=== PATIENT | female | born 1945 | race Caucasian/White ===

== ENCOUNTER 2019-06-12 12:46 | Inpatient (IN) | payer MEDICARE, OTHER ==
[~2019-06-12] VITALS: Ht 154.9 cm; Wt 56.6 kg
--- NOTE | 2019-06-12 13:10 | NUR ---
PATIENT PRESENTS TO ED TODAY FOR CAT BITE TO RT HAND LAST SAT. PATIENT SENT TO ED FROM FOR CULLULITIS. ERYTHEMA/SWELLING NOTED TO RT HAND. AWAITING MD ORDERS, CALL LIGHT WITHIN REACH.
[2019-06-12] MEDS ORDERED: TIOT18CA INH (13:11)
[2019-06-12] MEDS ORDERED: FLUT12HF2 INH (13:12)
--- NOTE | 2019-06-12 13:16 | NUR ---
PATIENT 87% RA, SUPPLEMENTAL O2 APPLIED, NOW 95% 2L NC.
[2019-06-12] MEDS ORDERED: SODIUM CHLORIDE FLUSH 10ML SYR IVF ONE (13:30)
[2019-06-12 13:36] LABS: BASOPHILS # (AUTO) 0.03 x10^3/uL (0-0.1); BASOPHILS % (AUTO) 0 % (0-1); EOSINOPHILS # (AUTO) 0.11 x10^3/uL (0-0.4); EOSINOPHILS % (AUTO) 1 % (1-7); LYMPHOCYTES # (AUTO) 1.48 x10^3/uL (1-3.4); LYMPHOCYTES % (AUTO) 14 % (22-44); MD NO; MEAN CORPUSCULAR HEMOGLOBIN 30.5 pg (27.0-34.8); MEAN CORPUSCULAR HGB CONC 33.1 g/dL (32.4-35.8); MEAN CORPUSCULAR VOLUME 92.2 fL (80-100); MEAN PLATELET VOLUME 7.5 fL (7.4-10.4); MONOCYTES # (AUTO) 0.49 x10^3/uL (0.2-0.8); MONOCYTES % (AUTO) 5 % (2-9); NEUTROPHILS # (AUTO) 8.48 x10^3/uL (1.8-6.8); NEUTROPHILS % (AUTO) 80 % (42-75); PLATELET COUNT 271 x10^3/uL (130-400); RED BLOOD COUNT 5.27 x10^6/uL (3.82-5.3); RED CELL DISTRIBUTION WIDTH 15.3 % (9.6-15.2)
[2019-06-12 13:43] LABS: ANION GAP 7 mmol/L (5-15); CALCIUM 9.9 mg/dL (8.5-10.1); CHLORIDE 107 mmol/L (98-107); CREATININE 0.64 mg/dL (0.55-1.02)
--- NOTE | 2019-06-12 13:48 | NUR ---
VS UPDATED IN CHART, BLOOD CULTURES X 2 DRAWN PRIOR TO ABX ADMINISTRATION, ABX ADMINISTERED. PATIENT SITTING IN [place], PLAYING ON PHONE, NADN. AWAITING RESULTS.
[2019-06-12] MEDS ORDERED: AMPICILLIN/SULBACTAM 3 GM in SODIUM CHLORIDE 0.9% 100 ML IV ONE (14:00)
--- NOTE | 2019-06-12 14:09 | NUR ---
RESULTS BACK, CHART UP FOR RECHECK.
[2019-06-12] MEDS ORDERED: SODIUM CHLORIDE FLUSH 10ML SYR IVF PRN (15:00)
--- NOTE | 2019-06-12 15:05 | NUR ---
[facility] LEAVING AT BEDSIDE, PATIENT AMB WITH STEADY GAIT TO BATHROOM, ADMIT ORDER IN, AWAITING BED ASSIGNMENT. NADN. NO ADDITIONAL NEEDS AT THIS TIME.
--- NOTE | 2019-06-12 15:15 | NUR ---
REPORT TO [facility].
--- NOTE | 2019-06-12 15:25 | NUR ---
PATIENT TRANSFERRED TO HOSPITAL BED UPSTAIRS.
[2019-06-12] MEDS ORDERED: OXYcodone IR 5MG TABLET PO PRN (16:00)
[2019-06-12] MEDS ORDERED: ONDANSETRON 2MG/ML, 2ML IVPush PRN (16:00)
[2019-06-12] MEDS ORDERED: ACETAMINOPHEN 325 MG TABLET PO PRN (16:00)
[2019-06-12] MEDS ORDERED: hydrALAzine 20 MG/ML, 1ML IVPush PRN (16:00)
[2019-06-12] MEDS ORDERED: IBUPROFEN 600 MG TABLET PO PRN (16:00)
[2019-06-12] MEDS ORDERED: morphine SULFATE 10 MG/ML, 1ML IVPush PRN (16:00)
[2019-06-12] MEDS ORDERED: KETOROLAC 30 MG/1 ML IV PRN (16:00)
[2019-06-12] MEDS: D5%-0.45NACL+KCL 20MEQ 1,000 ML IV SCH (17:03)
[2019-06-12 19:49] VITALS: BP 97/63
[2019-06-12] MEDS: AMPICILLIN/SULBACTAM 3 GM in SODIUM CHLORIDE 0.9% 100 ML IV SCH (20:07)
[2019-06-13 01:26] VITALS: BP 99/65
[2019-06-13] MEDS: AMPICILLIN/SULBACTAM 3 GM in SODIUM CHLORIDE 0.9% 100 ML IV SCH ×4 (02:05→19:38)
[2019-06-13 05:16] LABS: BASOPHILS # (AUTO) 0.06 x10^3/uL (0-0.1); BASOPHILS % (AUTO) 1 % (0-1); EOSINOPHILS # (AUTO) 0.25 x10^3/uL (0-0.4); EOSINOPHILS % (AUTO) 3 % (1-7); LYMPHOCYTES # (AUTO) 1.36 x10^3/uL (1-3.4); LYMPHOCYTES % (AUTO) 19 % (22-44); MD NO; MEAN CORPUSCULAR HGB CONC 32.4 g/dL (32.4-35.8); MEAN CORPUSCULAR VOLUME 92.5 fL (80-100); MEAN PLATELET VOLUME 7.4 fL (7.4-10.4); MONOCYTES # (AUTO) 0.68 x10^3/uL (0.2-0.8); MONOCYTES % (AUTO) 9 % (2-9); NEUTROPHILS # (AUTO) 4.99 x10^3/uL (1.8-6.8); NEUTROPHILS % (AUTO) 68 % (42-75); PLATELET COUNT 251 x10^3/uL (130-400); RED BLOOD COUNT 4.37 x10^6/uL (3.82-5.3); RED CELL DISTRIBUTION WIDTH 15.1 % (9.6-15.2)
[2019-06-13 05:25] LABS: CHLORIDE 111 mmol/L (98-107)
[2019-06-13 05:29] LABS: CALCIUM 8.5 mg/dL (8.5-10.1); CREATININE 0.53 mg/dL (0.55-1.02)
[2019-06-13 05:54] LABS: ANION GAP 6 mmol/L (5-15)
[2019-06-13 07:53] VITALS: BP 97/58
[2019-06-13] MEDS: TEMPLATE NON-FORMULARY MED. (Tiotropium Bromide** (Spiriva**) 18 MCG) MC SCH (09:00)
[2019-06-13] MEDS: D5%-0.45NACL+KCL 20MEQ 1,000 ML IV SCH (13:00)
[2019-06-13 14:57] VITALS: BP 105/70
[2019-06-13 20:24] VITALS: BP 98/67
[2019-06-14 00:58] VITALS: BP 112/51
[2019-06-14] MEDS: AMPICILLIN/SULBACTAM 3 GM in SODIUM CHLORIDE 0.9% 100 ML IV SCH ×2 (01:56→08:07)
[2019-06-14 07:41] VITALS: BP 128/71
[2019-06-14] MEDS: TEMPLATE NON-FORMULARY MED. (Tiotropium Bromide** (Spiriva**) 18 MCG) MC SCH (08:21)
[2019-06-14] MEDS ORDERED: AMOX1TAB64 PO (13:23)
== END 2019-06-14 14:01 | disposition home or self-care (01) | DRG 603 ==
LOC: ED 14:35 → EDIP 14:36 → ED 14:58 → 3N 15:25
PROVIDERS: ADMIT Internal Medicine; ATTEND Internal Medicine
DX: L03.113 Cellulitis of right upper limb (principal); W55.01XA Bitten by cat, initial encounter; J44.9 Chronic obstructive pulmonary disease, unspecified; Z80.3 Family history of malignant neoplasm of breast; Z87.891 Personal history of nicotine dependence; Y93.89 Activity, other specified; Y92.89 Other specified places as the place of occurrence of the external cause; Y99.8 Other external cause status
CPT/HCPCS: 36415; 80048; 82040; 83605; 84145; 85025; 87040; G0378; J0295; J3480